=== PATIENT | male | born 1985 | race Two or more races ===

== ENCOUNTER → 2019-07-08 | Outpatient (CLI) | payer OTHER | END | disposition home or self-care (01) | LOC: TOM 08:55 | DX: R05 Cough (principal); R07.1 Chest pain on breathing ==

== ENCOUNTER 2021-08-12 11:24 | Outpatient (CLI) | payer OTHER | END 2021-08-12 11:25 | disposition home or self-care (01) | LOC: RAD 11:24 | PROVIDERS: ATTEND Pediatrics | DX: M84.441A Pathological fracture, right hand, initial encounter for fracture (principal) ==

== ENCOUNTER 2021-08-23 11:28 | Outpatient (CLI) | payer OTHER | END 2021-08-25 14:11 | disposition home or self-care (01) | LOC: RAD 11:28 | PROVIDERS: ATTEND Orthopaedic Surgery | DX: S62.91XA Unspecified fracture of right hand, initial encounter for closed fracture (principal) ==

== ENCOUNTER 2021-09-13 09:49 | Outpatient (CLI) | payer OTHER | END 2021-09-13 10:00 | disposition home or self-care (01) | LOC: RAD 09:49 | PROVIDERS: ATTEND Orthopaedic Surgery | DX: M79.644 Pain in right finger(s) (principal) ==

== ENCOUNTER → 2023-02-03 | Outpatient (CLI) | payer OTHER | END | disposition home or self-care (01) | LOC: RAD 09:39 | PROVIDERS: ATTEND Pediatrics | DX: S92.011A Displaced fracture of body of right calcaneus, initial encounter for closed fracture (principal) ==

== ENCOUNTER 2023-08-28 11:52 | Outpatient (CLI) | payer OTHER | END 2023-08-28 12:00 | disposition home or self-care (01) | LOC: RAD 11:52 | PROVIDERS: ATTEND Pediatrics | DX: M22.40 Chondromalacia patellae, unspecified knee (principal) ==

== ENCOUNTER 2023-09-06 11:39 | Outpatient (CLI) | payer OTHER | END 2023-09-06 13:47 | disposition home or self-care (01) | LOC: MRI 11:39 | PROVIDERS: ATTEND Orthopaedic Surgery | DX: S83.242A Other tear of medial meniscus, current injury, left knee, initial encounter (principal) | CPT/HCPCS: 73718 ==

== ENCOUNTER 2024-09-16 16:27 | Outpatient (CLI) | payer OTHER | END 2024-09-16 16:32 | disposition home or self-care (01) | LOC: RAD 16:27 | PROVIDERS: ATTEND Internal Medicine Cardiovascular Disease | DX: R00.2 Palpitations (principal) ==